=== PATIENT | male | born 1995 | race American Indian/Alaskan Native ===

== ENCOUNTER 2019-04-22 17:05 | Emergency (ER) | payer SELFPAY ==
[2019-04-22 17:13] VITALS: BP 119/72
== END 2019-04-22 19:10 | disposition left against medical advice (07) ==
LOC: ED 17:05
DX: M54.2 Cervicalgia (principal); Z53.21 Procedure and treatment not carried out due to patient leaving prior to being seen by health care provider

== ENCOUNTER 2019-04-23 08:59 | Emergency (ER) | payer MEDICAID ==
[2019-04-23 09:04] VITALS: BP 125/78
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
== END 2019-04-23 11:04 | disposition home or self-care (01) ==
LOC: ED 08:59
DX: S16.1XXA Strain of muscle, fascia and tendon at neck level, initial encounter (principal); M54.6 Pain in thoracic spine; M62.838 Other muscle spasm; Z79.899 Other long term (current) drug therapy; Z91.013 Allergy to seafood; V49.49XA Driver injured in collision with other motor vehicles in traffic accident, initial encounter; Y93.89 Activity, other specified; Y92.410 Unspecified street and highway as the place of occurrence of the external cause; Y99.8 Other external cause status

== ENCOUNTER 2019-05-02 13:19 | Emergency (ER) | payer MEDICAID ==
[2019-05-02 14:38] VITALS: BP 113/72
[2019-05-02] MEDS ORDERED: KETOROLAC 30 MG/1 ML INJ IM ONE (14:57)
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
== END 2019-05-02 16:17 | disposition home or self-care (01) ==
LOC: ED 13:19
DX: M79.10 Myalgia, unspecified site (principal); J45.909 Unspecified asthma, uncomplicated; F17.200 Nicotine dependence, unspecified, uncomplicated; Z79.899 Other long term (current) drug therapy; Z91.013 Allergy to seafood; V49.49XA Driver injured in collision with other motor vehicles in traffic accident, initial encounter; Y93.89 Activity, other specified; Y92.488 Other paved roadways as the place of occurrence of the external cause; Y99.8 Other external cause status
CPT/HCPCS: 72072; 96372; 99283; J1885